=== PATIENT | female | born 1980 | race African-American/Black ===

== ENCOUNTER → 2017-02-10 | Day surgery (SDC) | payer OTHER ==
[~2017-02-10] VITALS: Ht 165.1 cm; Wt 83.0 kg
[~2017-02-10] MED LIST: LORAZEPAM0.5 M1 PO; VIIBRYD40 M1 PO
--- NOTE | 2017-02-10 05:44 | ED GI/GU/ABDOMINAL COMPLAINT ---
History of Present Illness General Chief Complaint: Abdominal Pain/Flank Pain Stated Complaint: ABD PAIN Source: patient Exam Limitations: no limitations Vital Signs & Intake/Output Vital Signs & Intake/Output Vital Signs Date Time Temp Pulse Resp B/P B/P Pulse O2 O2 Flow FiO2 Mean Ox Delivery Rate 02/10 0942 98.8 76 18 103/69 98 Room Air 02/10 0649 96.4 83 18 126/82 100 Room Air 02/10 0555 Room Air 02/10 0413 97.8 92 20 128/88 98 Allergies Coded Allergies: No Known Allergies (02/10/17) Triage Note: PER PT THIS AFTERNOON FELT "FULL" BUT HAD NOT EATEN SO TRIED SOME MIRALAX WITH EFFECT BUT THEN STARTED WITH PAIN, HAS PROGRESSED, LAST BM YESTERDAY, LMP 2 WEEKS AGO. Triage Nurses Notes Reviewed? yes ? N Is pt currently ? No HPI: Patient presents for evaluation of right lower quadrant abdominal pain began gradually at about 5:00 last night while at home. Patient states the pain got worse becoming severe at about 10 or 11:00 last night. It prevented her from sleeping. It is a dull achy pain now but it was quite sharp previously. She has vomited but denies any associated diarrhea dysuria fever or cold symptoms. He has felt some tremors and chills. She had an ovarian cyst at one point in the past that required surgical intervention. (KAITLYNN WILLIAM,ADONIS Marina) Reconcile Medications Lorazepam 0.5 MG TABLET 1 TAB PO DAILY NEEDED ANXIETY (Reported) Vilazodone (Viibryd) 40 MG TABLET 1 TAB PO DAILY DEPRESSION (Reported) (JACINTO WILLIAM,OSBALDO Bowens) Past History Travel History Traveled to [place] past 21 day No Medical History Any Pertinent Medical History? see below for history Neurological: NONE EENT: NONE Cardiovascular: NONE Respiratory: NONE Gastrointestinal: NONE Hepatic: NONE Renal: NONE Musculoskeletal: NONE Psychiatric: NONE Endocrine: NONE Surgical History Surgical History: SEE hpi Psychosocial History What is your primary language Upper Sorbian Tobacco Use: Never used Family History Hx Contributory? No (KAITLYNN WILLIAM,ADONIS Marina) Review of Systems Review of Systems Constitutional: Reports: no symptoms. EENTM: Reports: no symptoms. Respiratory: Reports: no symptoms. Cardiovascular: Reports: no symptoms. GI: Reports: see HPI. Genitourinary: Reports: no symptoms. Musculoskeletal: Reports: no symptoms. Skin: Reports: no symptoms. Neurological/Psychological: Reports: no symptoms. Hematologic/Endocrine: Reports: no symptoms. Immunologic/Allergic: Reports: no symptoms. All Other Systems: Reviewed and Negative (KAITLYNN WILLIAM,ADONIS Marina) Physical Exam Physical Exam Gastrointestinal: SEE BELOW Comments: Gen.: Well-nourished, well-developed, no acute respiratory distress. Head: Normocephalic, atraumatic. Eyes: Normal inspection bilaterally Ears: Normal inspection bilaterally Nose: Normal inspection Throat/mouth : Moist mucosa Neck: Supple, full range of motion, no goiter Heart: Regular rate and rhythm, no murmurs rubs or gallops Lungs: Clear to auscultation bilaterally with normal air entry Chest: Nontender Back: Normal range of motion Abdomen: Soft, right lower quadrant abdominal tenderness, nondistended, normal bowel sounds, positive Rovsing sign Extremities: Normal range of motion grossly, equal radial pulses, no cyanosis clubbing or edema Neurologic: Cranial nerves grossly intact, speech is clear Skin: warm and dry Psychiatric: Calm, cooperative, no apparent delusions or hallucinations Core Measures ACS in differential dx? No Severe Sepsis Present: No Septic Shock Present: No (KAITLYNN WILLIAM,ADONIS Marina) Progress Differential Diagnosis: appendicitis, kidney stone, ovarian cyst, ovarian torsion Plan of Care: Orders Procedure Date/time Status Nothing by Mouth 02/10 L Active URINALYSIS 02/10 0539 Complete LIPASE 02/10 0539 Complete HUMAN BETA HCG SCREEN 02/10 05 Complete COMPREHENSIVE METABOLIC PANEL 02/10 0539 Complete CBC WITHOUT DIFFERENTIAL 02/10 05 Complete Current Medications Sig/[place] Start time Last Medication Dose Stop Time Status Admin Potassium Chloride 20 MEQ Q8H 02/10 0930 UNVr 02/10 (KCl 20MEQ in D5W NS 0942 1000ML) Dextrose/Sodium 1,000 ML Chloride (D5-Normal Saline) Laboratory Tests 02/10/17 0725: Urinalysis MOD H, Urine Color YEL, Urine Clarity HAZY H, Urine pH 8.0, Ur Specific [place] 1.010, Urine Protein NEG, Urine Ketones 40 H, Urine Nitrite NEG, Urine Bilirubin NEG, Urine Urobilinogen 0.2, Ur Leukocyte Esterase NEG, Ur Microscopic SEDIMENT EXAMINED, Urine RBC 3-5, Urine WBC RARE, Ur Epithelial Cells FEW, Urine Bacteria FEW H, Urine Hemoglobin MOD H, Urine Glucose NEG 02/10/17 0550: Anion Gap 12, Estimated GFR > 60, BUN/Creatinine Ratio 11.4, Glucose 92, Calcium 9.2, Total Bilirubin 0.7, AST 21, ALT 32, Alkaline Phosphatase 60, Total Protein 7.3, Albumin 4.3, Globulin 3.0, Albumin/Globulin Ratio 1.4, Lipase 25, Total Beta HCG NEGATIVE, CBC w Diff MAN DIFF ORDERED, RBC 4.60, MCV 81.3, MCH 25.6 L, RDW 16.8 H, MPV 10.0, Gran % 88.7 H, Lymphocytes % 9.2 L, Monocytes % 2.0, Eosinophils % 0, Basophils % 0.1, Absolute Granulocytes 10.0 H, Absolute Lymphocytes 1.0 L, Absolute Monocytes 0.2, Absolute Eosinophils 0, Absolute Basophils 0, Platelet Estimate VERIFIED BY SMEAR, Anisocytosis 1+, PUBS MCHC 31.5 L Initial ED EKG: none Comments: 02/10/2017 6:55:54 AM 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 (KAITLYNN WILLIAM,ADONIS Marina) Diagnostic Imaging: Viewed by Me: CT Scan. Discussed w/RAD: CT Scan. Radiology Impression: PATIENT: SARAHY VELIZ PRESENT AGE: 36 PATIENT ACCOUNT NO: [id number] : 80 LOCATION: [facility] ORDERING PHYSICIAN: ADONIS CALDERÓN MD SERVICE DATE: 02/10/17 EXAM TYPE: CAT - CT ABD & PELVIS W IV CONTRAST EXAMINATION: CT ABDOMEN AND PELVIS WITH CONTRAST CLINICAL INFORMATION: Right lower quadrant pain and tenderness. COMPARISON: None. TECHNIQUE: Contiguous axial thin section helical images of the abdomen and pelvis were performed following the administration of 95 mL of intravenous Optiray 320. The data set was reformatted in the coronal and sagittal planes and reviewed on an independent workstation. DLP: 474 mGy-cm. FINDINGS: There is mild dependent bibasilar atelectasis. The visualized lung bases are otherwise clear. The visualized portions of the heart are unremarkable. The liver is of normal size and attenuation without focal lesions nor intrahepatic biliary ductal dilation. A normal gallbladder is identified. There is no wall thickening or discernible pericholecystic fluid. The spleen, pancreas, adrenal glands are unremarkable. Both kidneys are of normal size and attenuation without hydronephrosis or nephrolithiasis. Following the administration of IV contrast, prompt symmetric nephrograms are displayed. There is no abdominal free fluid. There is neither mesenteric nor retroperitoneal lymphadenopathy. The appendix is distended and hyperemic measuring 15 mm. There is adjacent mesenteric fat stranding and trace free fluid. There is no pelvic free fluid. There is a 2.2 cm right ovarian cyst. An IUD is in place. The urinary bladder is unremarkable. There is neither pelvic nor inguinal lymphadenopathy. Bone windows: Neither sclerotic nor lytic bone lesions are identified. IMPRESSION: Appendicitis with trace adjacent free fluid without a demonstrable interval collection. 2.2 cm right ovarian cyst. DICTATED BY: GABRIELA CALZADA MD DATE/TIME DICTATED:02/10/17713 MATERIALS HANDLING EQUIPMENT OPERATOR:YUAN DATE/TIME TRANSCRIBED:02/10/17713 CONFIDENTIAL, DO NOT COPY WITHOUT APPROPRIATE AUTHORIZATION. <Electronically signed in Other Vendor System> SIGNED BY: GABRIELA CALZADA MD 02/10/17721 Comments: Patient has been advised of lab and CAT scan results. Dr. Townsend has been notified. Surgical PA has been paged. (OSBALDO ROMERO MD) Departure Departure Disposition: STILL A PATIENT Condition: Stable Referrals: PATIENT HAS NO PRIMARY CARE DR (PCP/Family) Departure Forms: Customer Survey General Discharge Information (KAITLYNN WILLIAM,ADONIS Marina) Departure Clinical Impression Primary Impression: Appendicitis Secondary Impressions: Abdominal pain Qualifiers: Abdominal location: left lower quadrant Qualified Code: R10.32 - Left lower quadrant pain Observation Note Spoke With: EMILIA TOWNSEND MD Physician Advisor Notified: OSBALDO ROMERO MD Place Patient In: Non-ED OBS Care Area Rationale for Observation: My rational for observation is as follows [will require surgical intervention for acute appendicitis]. OR/GI Note Spoke With: EMILIA TOWNSEND MD ED Treatment Decision: SARAHY VELIZ requires urgent operative management or an emergent procedure that cannot be performed in the Emergency Room setting. Transport To: [facility] (OSBALDO ROMERO MD)
[2017-02-10 06:06] LABS: ABSOLUTE BASOPHIL COUNT 0 /CUMM (0.0-0.2); ABSOLUTE EOSINOPHIL COUNT 0 /CUMM (0.0-0.7); ABSOLUTE MONOCYTE COUNT 0.2 /CUMM (0.10-0.60); BASOPHIL % 0.1 % (0.0-2.0); EOSINOPHIL % 0 % (0-5); GRANULOCYTE % 88.7 % (42.2-75.2); HEMATOCRIT 37.4 % (37-47); MEAN CORPUSCULAR HGB 25.6 PG (27.0-31.0); MEAN CORPUSCULAR HGB CONC 31.5 G/DL (33.0-37.0); MEAN CORPUSCULAR VOLUME 81.3 FL (81.0-99.0); PLATELET COUNT 201 /CUMM (130-400); RBC DISTRIBUTION WIDTH 16.8 % (11.5-14.5); WHITE BLOOD CELL COUNT 11.3 /CUMM (4.8-10.8)
--- NOTE | 2017-02-10 07:22 | CT SCAN REPORT ---
EXAMINATION: CT ABDOMEN AND PELVIS WITH CONTRAST CLINICAL INFORMATION: Right lower quadrant pain and tenderness. COMPARISON: None. TECHNIQUE: Contiguous axial thin section helical images of the abdomen and pelvis were performed following the administration of 95 mL of intravenous Optiray 320. The data set was reformatted in the coronal and sagittal planes and reviewed on an independent workstation. DLP: 474 mGy-cm. FINDINGS: There is mild dependent bibasilar atelectasis. The visualized lung bases are otherwise clear. The visualized portions of the heart are unremarkable. The liver is of normal size and attenuation without focal lesions nor intrahepatic biliary ductal dilation. A normal gallbladder is identified. There is no wall thickening or discernible pericholecystic fluid. The spleen, pancreas, adrenal glands are unremarkable. Both kidneys are of normal size and attenuation without hydronephrosis or nephrolithiasis. Following the administration of IV contrast, prompt symmetric nephrograms are displayed. There is no abdominal free fluid. There is neither mesenteric nor retroperitoneal lymphadenopathy. The appendix is distended and hyperemic measuring 15 mm. There is adjacent mesenteric fat stranding and trace free fluid. There is no pelvic free fluid. There is a 2.2 cm right ovarian cyst. An IUD is in place. The urinary bladder is unremarkable. There is neither pelvic nor inguinal lymphadenopathy. Bone windows: Neither sclerotic nor lytic bone lesions are identified. IMPRESSION: Appendicitis with trace adjacent free fluid without a demonstrable interval collection. 2.2 cm right ovarian cyst.
--- NOTE | 2017-02-10 09:20 | History & Physical Pre-Op ---
CARMINA DELGADO 02/10/17 0859: General Information and HPI MD Statement: I have seen and personally examined SARAHY VELIZ and documented this H&P. The patient is a 36 year old F who presented with a patient stated chief complaint of abdominal pain. Source of Information: patient Exam Limitations: no limitations History of Present Illness: Pt is a 36 yo healthy female who presented to the ED overnight with c/o abdominal bloating that started yesterday afternoon, with good response to Miralax, but then sudden onset of acute abdominal pain around 9pm. Pt states that the pain became progressively worse, with some associated emesis and chills , but no documented fever. This prompted presentation to the ED. Workup reveals a mild leukocytosis and CT evidence of acute appendicitis. Pt otherwise denies CORTES, dizziness, chest pain, SOB, diarrhea, severe constipation, hematemesis, hematochezia, dysuria. Last BM was last night and was solid. Last menstrual period was 2 weeks ago. Allergies/Medications Allergies: Coded Allergies: No Known Allergies (02/10/17) Home Med list Lorazepam 0.5 MG TABLET 1 TAB PO DAILY NEEDED ANXIETY (Reported) Vilazodone (Viibryd) 40 MG TABLET 1 TAB PO DAILY DEPRESSION (Reported) Past History Medical History Neurological: NONE EENT: NONE Cardiovascular: NONE Respiratory: NONE Gastrointestinal: NONE Hepatic: NONE Renal: NONE Musculoskeletal: NONE Psychiatric: depression Endocrine: NONE Surgical History Pertinent Surgical History: , salpingectomy for ectopic , excision of ruptured ovarian cyst Past Family/Social History Psychosocial History Where Do You Live? Home Who Do You Live With? spouse, child (3 children (4,9,10yo)) Services at Home None Smoking Status: Never Smoked ETOH Use: occasional use Review of Systems Review of Systems: Positive for abdominal pain and distention, emesis, chills. Negative for fever, CORTES, dizziness, chest pain, SOB, nausea, diarrhea, severe constipation, hematemesis, hematochezia, dysuria. Exam & Diagnostic Data Last 24 Hrs of Vital Signs/I&O Vital Signs Date Time Temp Pulse Resp B/P B/P Pulse O2 O2 Flow FiO2 Mean Ox Delivery Rate 02/10 0649 96.4 83 18 126/82 100 Room Air 02/10 0555 Room Air 02/10 0413 97.8 92 20 128/88 98 Intake & Output 02/10 1600 02/10 0800 02/10 0000 Intake Total 1000 Output Total Balance 1000 Intake, IV 1000 Intake, Oral 0 Patient 183 lb Weight Weight Reported by Patient Measurement Method Physical Exam: General: WD, WN female who is alert and oriented and in no acute distress. Cardiac: Regular, no murmurs appreciated. Pulmonary: CTA bilaterally. No wheeezes, rales or rhonchi noted. Abdomen: Soft and non distended. There is tenderness in the RLQ over McBurney's point, but no guarding, rigidity, or rebound. Negative psoas sign. Normal BS were heard. Ext: No peripheral edema or calf tenderness appreciated at baseline. 2+ palpable pedal pulses. Last 24 Hrs of Labs/Martinez: Laboratory Tests 02/10/17 0725: Urinalysis MOD H, Urine Color YEL, Urine Clarity HAZY H, Urine pH 8.0, Ur Specific [place] 1.010, Urine Protein NEG, Urine Ketones 40 H, Urine Nitrite NEG, Urine Bilirubin NEG, Urine Urobilinogen 0.2, Ur Leukocyte Esterase NEG, Ur Microscopic SEDIMENT EXAMINED, Urine RBC 3-5, Urine WBC RARE, Ur Epithelial Cells FEW, Urine Bacteria FEW H, Urine Hemoglobin MOD H, Urine Glucose NEG 02/10/17 0550: Anion Gap 12, Estimated GFR > 60, BUN/Creatinine Ratio 11.4, Glucose 92, Calcium 9.2, Total Bilirubin 0.7, AST 21, ALT 32, Alkaline Phosphatase 60, Total Protein 7.3, Albumin 4.3, Globulin 3.0, Albumin/Globulin Ratio 1.4, Lipase 25, Total Beta HCG NEGATIVE, CBC w Diff MAN DIFF ORDERED, RBC 4.60, MCV 81.3, MCH 25.6 L, RDW 16.8 H, MPV 10.0, Gran % 88.7 H, Lymphocytes % 9.2 L, Monocytes % 2.0, Eosinophils % 0, Basophils % 0.1, Absolute Granulocytes 10.0 H, Absolute Lymphocytes 1.0 L, Absolute Monocytes 0.2, Absolute Eosinophils 0, Absolute Basophils 0, Platelet Estimate VERIFIED BY SMEAR, Anisocytosis 1+, PUBS MCHC 31.5 L Diagnostic Data Other Results CT scan of the abdomen and pelvis revealed acute appendicitis, 15mm dilated. Assessment/Plan Assessment/Plan: Pt is a 36 yo F with a hx of depression, but otherwise healthy, who presents with abdominal pain and emesis due to acute appendicitis. Plan: -ER to OR for laparoscopic appendectomy by Dr. Townsend. -Unasyn was given at 7:40am. -NPO/IVF with potassium. -Pain control with morphine if needed. -Plan for likely discharge to home after surgery if uncomplicated. As Ranked By This Provider Problem List: 1. Appendicitis EMILIA TOWNSEND MD 02/10/17 1208: Attending MD Review Statement Attending Statement Attending MD Statement: examined this patient, discuss w/resident/PA/DISPERSION MIXER, reviewed images Attending Assessment/Plan: 36-year-old healthy woman presents with acute onset of periumbilical abdominal pain that progressed to the right lower quadrant overnight. This is associated with anorexia. Physical examination is consistent with focal right lower quadrant peritonitis. Clinically she has acute appendicitis, the diagnosis is confirmed by CAT scan. Images reviewed personally. Plan will be to perform laparoscopic appendectomy when or is available. Preoperative that she'll receive broad-spectrum antibiotics intravenously. She is informed the risks of the operation including bleeding infection conversion to open. She agrees to proceed.
[2017-02-10 09:42] VITALS: BP 103/69
--- NOTE | 2017-02-10 12:13 | Operative Report ---
Operative/Inv Procedure Report Surgery Date: 02/10/17 Name of Procedure: Laparoscopic appendectomy Pre-Operative Diagnosis: Acute appendicitis Post-Operative Diagnosis: Same Estimated Blood Loss: less than 50ml Surgeon/Summer Camp Counselor: Nicola Chopra M.D./Jillian TERESA Anesthesia: general endotracheal tube Specimens: Appendix Operative Indication: See preoperative H&P Operative/Procedure Note Note: After consent patient is brought to the operating room and laid supine. General anesthesia was obtained her abdomen was prepped and draped. Skin above the umbilicus was after local anesthesia a curvilinear incision made sharply. We dissected through subcutaneous tissues tissues bluntly and identified the fascia. It was grasped with Giacomo's and a fasciotomy created sharply. The peritoneum was entered sharply and a blunt Wan port was placed. Pneumoperitoneum was achieved. 2, 5 mm ports were placed in the suprapubic region and left lower quadrant, after local anesthesia was instilled and under direct vision the camera. Patient placed in Trendelenburg and rotated towards the left. The abdomen was explored. 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 The lateral attachment is were peeled away bluntly. A window on the mesenteric side towards the colon was developed with cautery. We then able to circumferentially mobilize the meso appendix. The base was supple and grasped with a Pam. A window through the mesentery was created at that point with a [place] dissector. The mesentery was divided with 2 loads of an Endo CANDIDO Burns load. The base was divided with a reload. The appendix is placed in Endo Catch bag and cinched up. The right lower quadrant and pelvis were then irrigated with normal saline. Hemostasis was adequate. Ports then removed and appendix delivered and passed off the field. The fascia was closed 0 Vicryl suture. Skin incisions closed with 4-0 Vicryl. Steri-Strips and sterile dressing applied. Sponge and needle counts are correct
== END ==
LOC: ERH 03:57 → STS 10:33
PROVIDERS: Emergency Medicine
DX: K35.80 Unspecified acute appendicitis (principal)
CPT/HCPCS: 74177; 81001; 88304; 96361; 96374; 96375; C9399; J0131; J1170; J2250; J3010; J7042; S5012